=== PATIENT | male | born 1970 | race Caucasian/White ===

== ENCOUNTER 2022-02-15 18:45 | Emergency (ER) | payer OTHER, SELFPAY ==
--- NOTE | 2022-02-15 18:51 | ED.UPPEXIN ---
HPI - Extremity Injury (Upper) General Chief Complaint: Extremity Injury, Upper Stated Complaint: Swollen Elbow Time Seen by Provider: 02/15/22 18:51 Source: patient, family and RN notes reviewed History of Present Illness HPI narrative: Patient is a 51-year-old male who presents the urgent care with his spouse with complaints of right elbow redness and swelling. Patient states that started 3 days ago and he noticed this morning it had increased redness. Patient states that started a small knot right over the elbow and is gotten larger since then. Patient denies any fevers, nausea or vomiting. 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 Patient is right-hand dominant. Denies of any trauma or known injury to the elbow. other acute complaints. No acute distress noted. Patient aware of the plan of care. Some parts of this dictation were generated by voice recognition software and may contain typographical and/or grammatical inaccuracies. Related Data Allergies Allergy/AdvReac Type Severity Reaction Status Date / Time No Known Allergies Allergy Verified 02/15/22 19:09 Review of Systems Review of Systems: CONSTITUTIONAL: Denies fever, chills, or sweats. EYES: Denies visual changes, redness, or discharge. ENT: Denies rhinorrhea, congestion, sore throat, or otalgia. CARDIOVASCULAR: Denies chest pain, palpitations, or edema. RESPIRATORY: Denies cough or dyspnea. GASTROINTESTINAL: Denies abdominal pain, nausea, vomiting, or diarrhea. GENITOURINARY: Denies dysuria or hematuria. SKIN: Denies rash or itching. MUSCULOSKELETAL: Reports of right elbow pain and swelling NEUROLOGIC: Denies headache, numbness, or weakness. All other systems reviewed are negative, except as documented in HPI. PMFSH Comments At the time of my signature, I reviewed and agree with the nursing past medical, surgical, social, and family history. There is no relevant family history pertinent to the patient complaint. Exam Narrative: GENERAL: This is a well-nourished, well-developed patient, in no apparent distress. HEAD: normocephalic, atraumatic. EYES: PERRL. Sclera clear/white. Vision is grossly intact. EARS: External ears normal NOSE: External nose normal with no obvious nasal discharge, nares without redness, no rhinorrhea. THROAT: Mucous membranes moist NECK: Neck supple SKIN: warm, intact with no suspicious lesions or rash, good texture and turgor. NEURO: awake, alert, and oriented to person, place and time. There were no obvious focal neurologic abnormalities. EXTREMITIES: Range of motion of right upper extremity within normal limits with positive strong right radial pulse and capillary refill less than 2 seconds. Notable joint effusion/bursitis noted to the right elbow with warmth and erythema Course Course Level of Care: Express Care Visit Vital Signs Vital signs: Vital Signs Temperature 98.1 F 02/15/22 19:06 Pulse Rate 92 02/15/22 19:06 Respiratory Rate 18 02/15/22 19:06 Blood Pressure 135/78 02/15/22 19:06 Pulse Oximetry 98 02/15/22 19:06 Oxygen Delivery Room Air 02/15/22 19:06 Temperature 98.1 F 02/15/22 19:06 Pulse Rate 92 02/15/22 19:06 Respiratory Rate 18 02/15/22 19:06 Blood Pressure 135/78 02/15/22 19:06 Pulse Oximetry 98 02/15/22 19:06 Oxygen Delivery Room Air 02/15/22 19:06 Reviewed MDM - Extremity Injury (Upper) MDM Narrative Medical decision making narrative: Advised patient to complete the oral antibiotic regimen as prescribed. Complete the steroid regimen as prescribed. Use Tylenol as needed for pain or discomfort. Avoid strenuous activity or repetitive motion to the elbow until swelling and pain subsides. Use ice. Be sure to eat and drink with the medication. Symptoms are highly likely related to a bursitis which improves also with a little bit of pressure such as a gauze wrap or an Kush bandage. Advised the patient that if he develops any increa
[2022-02-15 19:06] VITALS: BP 135/78; PULSE 92; RESP 18; TEMP 36.7; O2SAT 98
== END 2022-02-15 19:23 | disposition home or self-care (01) ==
PROVIDERS: Emergency Provider Nurse Practitioner Family; PCP Internal Medicine
DX: M71.521 Other bursitis, not elsewhere classified, right elbow (principal); Z85.118 Personal history of other malignant neoplasm of bronchus and lung; Z85.528 Personal history of other malignant neoplasm of kidney; Z90.2 Acquired absence of lung [part of]; Z90.5 Acquired absence of kidney
CPT/HCPCS: 99213; G0463

== ENCOUNTER 2024-01-08 13:54 | Outpatient (RCR) | payer OTHER, SELFPAY ==
--- NOTE | 2024-01-08 16:11 | OPREHPOC ---
Outpatient Therapy Plan of Care This is a Multidisciplinary Plan of Care that may contain components documented by all disciplines (PT, OT, and ST.) PT Problem 1 PT Problem #1 Knowledge Deficit PT Goal 1 Goal 1. compliant with HEP with assist from . Target Visit 2 PT Problem 2 PT Problem #2 Impaired Balance PT Goal 1 Goal 1. tinetti to display moderate fall risk or less Target Visit 4 PT Problem 3 PT Problem #3 Impaired Gait PT Goal 1 Goal 1. patient to ambulate with bilateral arm swing, more normal foot width, and no staggering. Target Visit 4 PT Problem 4 PT Problem #4 Impaired Functional Mobil PT Goal 1 Goal 1. patient to report no falls 2. patient to utilize AD for standing and ambulation safety Target Visit 4
--- NOTE | 2024-01-08 16:11 | PTOPEVAL1 ---
Assessment and note entered by JT File, PT Evaluation Information Assessment Status Evaluation Diagnosis dizziness ICD-10 Condition Codes (PT) Dizziness & Giddiness R42 Onset 12/30/23 Subjective Information patient reports last week he awoke in bed with sweating, nausea, and dizziness. he was taken to the ER by his family and was found under imaging to have a bleed in the brain. he was flown to [facility] where he stayed for a few days. he reports the bleed is in his cerebellum and is reducing on its own at the moment. he reports he was put on no new meds and no schedule for surgery at this time. he reports the doctors there were not sure at this time whether it was a bleed or possibly a met from his kidney cancer. he has follow up scans early in january. Reported Pain Level Pain Score 0: Self Report Pain Score 0: Self Report Assessment PT Clinical Summary mr. lujan is a 53 yo man who presents to skilled PT services for evaluation and treatment of balance and dizziness following a bleed in the brain. he presents today with balance deficits and unsteady gait from his brain bleed in the cerebellum. he displays a high fall risk per the tinetti, and unsteady gait without and AD and CGA. continued skilled PT is indicated to improve his objective/functional deficits and progress towards a return to prior level functional activity performance/quality of life. Plan of Care Interventions Gait Training,Neuro Re-education,Patient/Caregiver Educati,Therapeutic Activities,Therapeutic Exercise PT Services Indicated Yes Treatment Frequency and 1x weekly for 4 visits Duration These treatments will address the objective and functional deficits as defined above. The patient will be advanced safely and appropriately in order for the patient to progress towards his/her prior level of function. Additional exercises will be introduced and as well as a comprehensive home exercise program upon discharge, if needed, ?to ensure carryover of functional gains achieved in the clinic. This treatment plan has been reviewed and agreement upon by the patient.
--- NOTE | 2024-01-10 15:34 | BUOTOPEVAL ---
Assessment and note entered by Alexandra Keating, OT Evaluation Information Assessment Status Evaluation Diagnosis Cerebellar hemorrhage, dizziness Reported Pain Level Pain Score 0: Self Report Pain Score 0: Self Report Assessment OT Clinical Summary The patient is a 53 year old male who was referred to outpatient OT due to cerebellar hemorrhage resulting in dizziness and loss of balance. The patient demonstrates WNL B UE strength, B water filter cleaner strength, B gross motor coordination, modified independence to SBA with ADLs and IADLs due to balance deficits, and minimally impaired fine motor coordination scoring just below age norms. The patient also demonstrates WNL scores on MOCA ( cognition), Trails A (visual scanning), [place] Maze test (attention and executive function), and minimally below norms of Trails B demonstrating little to no deficits in cognition and executive function. The patient does not require skilled OT at this time due to independence, good function in UE and minimal to no cognitive or visual deficits . The patient and family were educated and agreeable to potentially needing OT in the future depending what prognosis and plan of action will be for maintaining health after patient returns to neurosurgeon in the middle of January. At this time, the patient to engage in PT to address balance and dizziness deficits and is discharged from OT as not needing services at this time. Plan of Care OT Services Indicated No These treatments will address the objective and functional deficits as defined above. The patient will be advanced safely and appropriately in order for the patient to progress towards his/her prior level of function. Additional exercises will be introduced and as well as a comprehensive home exercise program upon discharge, if needed, ?to ensure carryover of functional gains achieved in the clinic. This treatment plan has been reviewed and agreement upon by the patient.
== END 2024-04-07 23:59 | disposition home or self-care (01) ==
LOC: CHSPT 13:54
DX: R42 Dizziness and giddiness (principal)
CPT/HCPCS: 97110; 97112; 97162; 97165; 97530